=== PATIENT | female | born 1995 | race Two or more races ===

== ENCOUNTER 2019-07-12 09:20 | Emergency (ER) | payer OTHER ==
[~2019-07-12] VITALS: Ht 165.1 cm; Wt 66.0 kg
--- NOTE | 2019-07-12 09:56 | PHYS DOC ---
Past History Past Medical History: Anxiety Past Surgical History: No Surgical History Smoking: Non-smoker Alcohol Use: None Drug Use: None Adult General Chief Complaint Chief Complaint: [facility] HPI Patient is a 23 year old female4 who presents for evaluation of altered mental status. Patient is active when she was sent in by her superior officer for evaluation. Patient had been showing signs of confusion and slurred speech while on duty. Patient admits to taking a Xanax pill that was not prescribed to her from a friend about 6 AM today. She drove herself to work. Patient states that she has been under a lot of stress lately and feeling "jittery". Patient has not had a visit with her primary care provider regarding anxiety since it "takes 2-3 weeks to get in". Patient has not been formally diagnosed with anxiety. Patient denies taking any other pills. There is no reported suicidal thoughts, homicidal thoughts etc. Review of Systems Review of Systems Constitutional: Denies fever or chills [] Eyes: Denies change in visual acuity, redness, or eye pain [] HENT: Denies nasal congestion or sore throat [] Respiratory: Denies cough or shortness of breath [] Cardiovascular: No additional information not addressed in HPI [] GI: Denies abdominal pain, nausea, vomiting, bloody stools or diarrhea [] : Denies dysuria or hematuria [] Musculoskeletal: Denies back pain or joint pain [] Integument: Denies rash or skin lesions [] Neurologic: Denies headache, focal weakness or sensory changes [] Endocrine: Denies polyuria or polydipsia [] All other systems were reviewed and found to be within normal limits, except as documented in this note. Allergies Allergies Allergies Coded Allergies Type Severity Reaction Last Updated Verified No Known Drug Allergies 07/12/19 No Physical Exam Physical Exam Constitutional: Well developed, well nourished, in mild acute distress, non- toxic appearance. [] HENT: Normocephalic, atraumatic, bilateral external ears normal, oropharynx moist, no oral exudates, nose normal. [] Eyes: PERRL, EOMI, conjunctiva normal, no discharge. [] Neck: Normal range of motion, no tenderness, supple, no stridor. [] Cardiovascular:Heart rate regular rhythm, no murmur [] Lungs & Thorax: Bilateral breath sounds clear to auscultation [] Abdomen: Bowel sounds normal, soft, no tenderness, no masses, no pulsatile masses. [] Skin: Warm, dry, no erythema, no rash. [] Back: No tenderness, no CVA tenderness. [] Extremities: No tenderness, no cyanosis, no clubbing, ROM intact, no edema. [] Neurologic: Alert and oriented X 3, normal motor function, normal sensory function, no focal deficits noted. [] Psychologic: anxious affect (mild), mood normal. [] Current Patient Data Vital Signs Vital Signs Date Time Temp Pulse Resp B/P (MAP) Pulse Ox O2 Delivery O2 Flow Rate FiO2 07/12/19 09:27 97.8 108 18 141/91 (108) 98 Room Air EKG EKG [] Radiology/Procedures Radiology/Procedures [] Course & Med Decision Making Course & Med Decision Making Pertinent Labs and Imaging studies reviewed. (See chart for details) 1030 Pt stable, feeling better at this time. Drug screen positive for benozodiazepines. Close follow up with PCP recommended so pt can receive proper treatment for her underlying anxiety. No indication for psychiatric admission. Pt is not suicidal or homicidal. I feel her previously noted mental status change was from taking the xanax, no other obvious medical diagnosis seen. Blood sugar is normal. Pt is not and her UA is negative. Dragon Disclaimer Dragon Disclaimer This electronic medical record was generated, in whole or in part, using a voice recognition dictation system. Departure Departure: Impression: Primary Impression: Benzodiazepine misuse Additional Impression: Anxiety Disposition: 01 HOME, SELF-CARE Condition: STABLE Referrals: TREV WESLEY (PCP) Patient Instructions: Anxiety and Panic Attacks Additional Instructions: only take medications prescribed to you, call and see your primary care doctor right away in follow up, return if worsen or you have suicidal thoughts etc. Problem Qualifiers JOESPH PETERSON DO Jul 12, 2019 09:56
[2019-07-12 10:16] LABS: BARBITURATES NEG (NEG); BENZODIAZEPINES POS (NEG); CANNABINOIDS NEG (NEG); COCAINE NEG (NEG); METHADONE NEG (NEG); OPIATES NEG (NEG); PHENCYCLIDINE NEG (NEG)
[2019-07-12 10:17] LABS: AMPHETAMINE/METHAMPHETAMINE NEG (NEG)
[2019-07-12 10:25] LABS: BACTERIA,URINE 0 /HPF (0-FEW); BILIRUBIN,URINE NEG (NEG); CLARITY,URINE CLEAR; COLOR,URINE STRAW; GLUCOSE,URINE NEG (NEG); NITRITE,URINE NEG (NEG); RBC,URINE OCC /HPF (0-2); SQUAMOUS EPITHELIAL CELL,UR FEW /LPF; UROBILINOGEN,URINE 0.2 mg/dL (0.2 mg/dL); WBC,URINE OCC /HPF (0-4)
[2019-07-12 10:41] VITALS: BP 141/87
== END 2019-07-12 10:43 | disposition home or self-care (01) ==
LOC: ER 09:20
DX: F15.90 Other stimulant use, unspecified, uncomplicated (principal); F41.9 Anxiety disorder, unspecified
CPT/HCPCS: 36415; 80307; 81001; 81025; 82947; 99283

== ENCOUNTER 2020-08-26 15:46 | Emergency (ER) | payer OTHER ==
[~2020-08-26] VITALS: Ht 162.6 cm; Wt 67.0 kg
[2020-08-26] MEDS ORDERED: PRED20TA PO (16:46)
[2020-08-26] MEDS ORDERED: ALBU2.5V8 IH (16:46)
[2020-08-26 16:52] VITALS: BP 119/74
== END 2020-08-26 16:54 | disposition home or self-care (01) ==
LOC: ER 15:46
DX: J45.21 Mild intermittent asthma with (acute) exacerbation (principal)
CPT/HCPCS: 71045; 81025; 94640; 99283; J8540; 99284

== ENCOUNTER 2021-01-04 16:08 | Emergency (ER) | payer OTHER ==
[~2021-01-04] VITALS: Ht 162.6 cm; Wt 68.0 kg
[~2021-01-04 16:08] MED LIST: ALBU2.5V8 IH; PRED20TA PO
--- NOTE | 2021-01-04 16:48 | PHYS DOC ---
Past History Past Medical History: Asthma, Depression Past Surgical History: No Surgical History Smoking: Non-smoker Alcohol Use: None Drug Use: None General Adult EDM: Chief Complaint: VAGINAL PROBLEM HPI: HPI: 25-year-old female presents with vaginal pain. Patient had nonspecific the first of last month. She then had spotting for a couple of weeks. She has not had spotting for the last week and a half. She had intercourse with her boyfriend 2 days ago and it was very painful. The patient continues to have lower abdominal/vaginal cramping. She also feels like her vaginal discharge is changed. It is more white and thicker than usual. She denies fever or chills. She is not having any vaginal bleeding. Review of Systems: Review of Systems: Constitutional: Denies fever or chills Eyes: Denies change in visual acuity HENT: Denies nasal congestion or sore throat Respiratory: Denies cough or shortness of breath Cardiovascular: Denies chest pain or edema GI: Denies abdominal pain, nausea, vomiting, bloody stools or diarrhea : Vaginal discharge, vaginal pain Musculoskeletal: Denies back pain or joint pain Integument: Denies rash Neurologic: Denies headache, focal weakness or sensory changes Endocrine: Denies polyuria or polydipsia Lymphatic: Denies swollen glands Psychiatric: Denies depression or anxiety Allergies: Allergies: Allergies Coded Allergies Type Severity Reaction Last Updated Verified No Known Drug Allergies 08/26/20 No Physical Exam: PE: Constitutional: Well developed, well nourished, no acute distress, non-toxic appearance. [] HENT: Normocephalic, atraumatic, bilateral external ears normal, oropharynx moist, no oral exudates, nose normal. [] Eyes: PERRLA, EOMI, conjunctiva normal, no discharge. [] Neck: Normal range of motion, no tenderness, supple, no stridor. [] Cardiovascular: Heart rate regular rhythm, no murmur [] Lungs & Thorax: Bilateral breath sounds clear to auscultation [] Abdomen: Bowel sounds normal, soft, no tenderness, no masses, no pulsatile masses. [] Skin: Warm, dry, no erythema, no rash. [] Back: No tenderness, no CVA tenderness. [] Extremities: No tenderness, no cyanosis, no clubbing, ROM intact, no edema. [] Neurologic: Alert and oriented X 3, normal motor function, normal sensory function, no focal deficits noted. [] Psychologic: Affect normal, judgement normal, mood normal. : Normal external genitalia, discomfort with speculum exam, no obvious vaginal wall trauma, cervix with bright red irritation around the os and scattered bright red dots up to half a centimeter out from the os, mild pain with palpation of cervix. [] Current Patient Data: Labs: Laboratory Tests Test 01/04/21 16:42 POC Urine HCG, Qualitative hcg negative (Negative) EKG: EKG: [] Radiology/Procedures: Radiology/Procedures: [] Heart Score: C/O Chest Pain: N/A Risk Factors: Risk Factors: DM, Current or recent (<one month) smoker, HTN, HLP, family history of CAD, obesity. Risk Scores: Score 0 - 3: 2.5% MACE over next 6 weeks - Discharge Home Score 4 - 6: 20.3% MACE over next 6 weeks - Admit for Clinical Observation Score 7 - 10: 72.7% MACE over next 6 weeks - Early Invasive Strategies Course & Med Decision Making: Course & Med Decision Making Pertinent Labs and Imaging studies reviewed. (See chart for details) The patient is not . The patient's wet prep is significant for bacteria l vaginosis. I will treat her with Flagyl for 7 days. Her GC chlamydia is pending. She would like to be prophylactically treated for GC chlamydia. We gave her 500mg Rocephin IM and doxycycline for 7 days. She is stable for discharge at this time. [] Roqueon Disclaimer: Dragjim Disclaimer: This electronic medical record was generated, in whole or in part, using a voice recognition dictation system. Departure Departure: Impression: Primary Impression: Bacterial vaginosis Additional Impression: Concern about STD in female without diagnosis Disposition: HOME / SELF CARE / HOMELESS Condition: STABLE Referrals: HOLLY SYED MD (PCP) Patient Instructions: Bacterial Vaginosis, [id number], Sexually Transmitted Disease, [id number] Scripts Metronidazole (FLAGYL) 500 Mg Tablet 1 TAB PO BID for antibiotic, #14 TAB Prov: CAT GUNTER DO 01/04/21 Doxycycline Hyclate (DOXYCYCLINE HYCLATE) 100 Mg Capsule 1 CAP PO BID for antibiotic, #14 CAP Prov: CAT GUNTER DO 01/04/21 CAT GUNTER DO Jan 04, 2021 16:48
[2021-01-04 17:16] LABS: BILIRUBIN,URINE NEG (NEG); CLARITY,URINE HAZY; COLOR,URINE YELLOW; GLUCOSE,URINE NEG (NEG)
[2021-01-04 17:17] LABS: BACTERIA,URINE FEW /HPF (0-FEW); NITRITE,URINE NEG (NEG); RBC,URINE OCC /HPF (0-2); SQUAMOUS EPITHELIAL CELL,UR MOD /LPF; UROBILINOGEN,URINE 0.2 mg/dL (0.2 mg/dL); WBC,URINE OCC /HPF (0-4)
[2021-01-04] MEDS ORDERED: METR500T PO (17:53)
[2021-01-04] MEDS ORDERED: DOXY100C3 PO (17:53)
[2021-01-04] MEDS ORDERED: cefTRIAXone IM 500 MG VIAL. IM ONE (18:00)
[2021-01-04 18:52] VITALS: BP 114/74
[2021-01-07 17:07] LABS: CHLAMYDIA PROBE Negative (Negative)
== END 2021-01-04 18:52 | disposition home or self-care (01) ==
LOC: ER 16:08
DX: N76.0 Acute vaginitis (principal); B96.89 Other specified bacterial agents as the cause of diseases classified elsewhere; Z20.2 Contact with and (suspected) exposure to infections with a predominantly sexual mode of transmission
CPT/HCPCS: 81001; 81025; 87086; 87491; 87591; 96372; 99283; J0696; Q0111

== ENCOUNTER 2021-01-29 20:42 | Emergency (ER) | payer OTHER ==
[~2021-01-29] VITALS: Ht 162.6 cm; Wt 68.0 kg
[~2021-01-29 20:42] MED LIST changes: +DOXY100C3 PO; +METR500T PO
--- NOTE | 2021-01-29 21:08 | PHYS DOC ---
Past History Past Medical History: Asthma, Depression Past Surgical History: No Surgical History Smoking: Non-smoker Alcohol Use: None Drug Use: None General Adult EDM: Chief Complaint: POST-OP PROBLEM HPI: HPI: Patient is a [age] year old [sex] who presents with [] Review of Systems: Review of Systems: Constitutional: Denies fever or chills Eyes: Denies change in visual acuity HENT: Denies nasal congestion or sore throat Respiratory: Denies cough or shortness of breath Cardiovascular: Denies chest pain or edema GI: Denies abdominal pain, nausea, vomiting, bloody stools or diarrhea : Denies dysuria Musculoskeletal: Denies back pain or joint pain Integument: Denies rash Neurologic: Denies headache, focal weakness or sensory changes Endocrine: Denies polyuria or polydipsia Lymphatic: Denies swollen glands Psychiatric: Denies depression or anxiety Allergies: Allergies: Allergies Coded Allergies Type Severity Reaction Last Updated Verified No Known Drug Allergies 01/04/21 No Physical Exam: PE: Constitutional: Well developed, well nourished, no acute distress, non-toxic appearance. [] HENT: Normocephalic, atraumatic, bilateral external ears normal, oropharynx moist, no oral exudates, nose normal. [] Eyes: PERRLA, EOMI, conjunctiva normal, no discharge. [] Neck: Normal range of motion, no tenderness, supple, no stridor. [] Cardiovascular:Heart rate regular rhythm, no murmur [] Lungs & Thorax: Bilateral breath sounds clear to auscultation [] Abdomen: Bowel sounds normal, soft, no tenderness, no masses, no pulsatile masses. [] Skin: Warm, dry, no erythema, no rash. [] Back: No tenderness, no CVA tenderness. [] Extremities: No tenderness, no cyanosis, no clubbing, ROM intact, no edema. [] Neurologic: Alert and oriented X 3, normal motor function, normal sensory function, no focal deficits noted. [] Psychologic: Affect normal, judgement normal, mood normal. [] EKG: EKG: @2053 Sinus tachycardia at 104bpm, NO ST elevation, QRS 68ms, QT/QTc 318/424ms, t wave inversion III Radiology/Procedures: Radiology/Procedures: PROCEDURE: CHEST PA & LATERAL XR CHEST 2V History: Reason: chest pain s/p titanium bar in chest, surgery was 1 week ago / Spl. Instructions: / History: Comparison: August 26, 2020 Findings: Postoperative changes pectus excavatum deformity repair. Small bilateral pleural effusions with adjacent opacities. No pneumothorax. Impression: 1. Small bilateral pleural effusions with adjacent opacities, may represent atelectasis or consolidations. Electronically signed by: Ryan Aguilar DO (01/29/2021 9:22 PM) [facility] Heart Score: C/O Chest Pain: Yes HEART Score for Chest Pain: HEART Score for Chest Pain Response (Comments) Value History Slighlty/Non-Suspicious 0 ECG Normal 0 Age < 45 0 Risk Factors No Risk Factors 0 Troponin < Normal Limit 0 Total 0 Risk Factors: Risk Factors: DM, Current or recent (<one month) smoker, HTN, HLP, family history of CAD, obesity. Risk Scores: Score 0 - 3: 2.5% MACE over next 6 weeks - Discharge Home Score 4 - 6: 20.3% MACE over next 6 weeks - Admit for Clinical Observation Score 7 - 10: 72.7% MACE over next 6 weeks - Early Invasive Strategies Course & Med Decision Making: Course & Med Decision Making Pertinent Labs and Imaging studies reviewed. (See chart for details) [] Dragon Disclaimer: Dragon Disclaimer: This electronic medical record was generated, in whole or in part, using a voice recognition dictation system. Departure Departure: Impression: Primary Impression: Postoperative pain Disposition: HOME / SELF CARE / HOMELESS Condition: STABLE Referrals: PCP,NO (PCP) Patient Instructions: Chest Pain (Nonspecific), [id number], Pain Relief Preoperatively and Postoperatively Additional Instructions: May also take over the counter Ibuprofen as needed for pain. Scripts Hydrocodone Bit/Acetaminophen (HYDROCODONE-APAP 5-325 ) 1 Each Tablet 0.5-1 TAB PO PRN Q6HRS PRN for PAIN, #10 TAB 0 Refills Prov: CHELLE ROWE DO 01/29/21 CHELLE ROWE DO Jan 29, 2021 21:08
--- NOTE | 2021-01-29 21:25 | RAD ---
XR CHEST 2V History: Reason: chest pain s/p titanium bar in chest, surgery was 1 week ago / Spl. Instructions: / History: Comparison: August 26, 2020 Findings: Postoperative changes pectus excavatum deformity repair. Small bilateral pleural effusions with adjac ent opacities. No pneumothorax. Impression: 1. Small bilateral pleural effusions with adjacent opacities, may represent atelectasis or consolida tions. Electronically signed by: Ryan Aguilar DO (01/29/2021 9:22 PM) [facility]
[2021-01-29] MEDS: IV NORMAL SALINE 1,000ML 1,000 ML IV ONE (21:42)
[2021-01-29 22:04] LABS: BASO # 0.1 x10^3/uL (0.0-0.2); BASO % 1 % (0-3); EOS # 0.4 x10^3/uL (0.0-0.7); EOS % 4 % (0-3); HEMATOCRIT 41.7 % (36.0-47.0); HEMOGLOBIN 14.2 g/dL (12.0-15.5); LYMPH # 1.9 x10^3/uL (1.0-4.8); LYMPH % 20 % (24-48); MEAN CORPUSCULAR HEMOGLOBIN 29 pg (25-35); MEAN CORPUSCULAR HGB CONC 34 g/dL (31-37); MEAN CORPUSCULAR VOLUME 86 fL (79-100); MONO # 1.1 x10^3/uL (0.0-1.1); MONO % 11 % (0-9); NEUT # 6.1 x10^3uL (1.8-7.7); NEUT % 64 % (31-73); PLATELET COUNT 323 x10^3/uL (140-400); RED BLOOD COUNT 4.87 x10^6/uL (3.50-5.40); RED CELL DISTRIBUTION WIDTH 12.3 % (11.5-14.5); WHITE BLOOD COUNT 9.5 x10^3/uL (4.0-11.0)
[2021-01-29 22:09] LABS: CALCIUM 9.1 mg/dL (8.5-10.1); CREATININE 0.6 mg/dL (0.6-1.0); GFR 123.9; POTASSIUM 4.1 mmol/L (3.5-5.1)
[2021-01-29 22:13] LABS: ALBUMIN 3.6 g/dL (3.4-5.0); ALBUMIN/GLOBULIN RATIO 0.8 (1.0-1.7); MAGNESIUM 2.2 mg/dL (1.8-2.4); TOTAL BILIRUBIN 0.3 mg/dL (0.2-1.0); TOTAL PROTEIN 8.1 g/dL (6.4-8.2)
--- NOTE | 2021-01-29 22:24 | EKG ---
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
[2021-01-29] MEDS ORDERED: CONTRAST GIVEN. MC PRN (23:00)
[2021-01-29] MEDS: IOHEXOL 350 MG/ML 100 ML VIAL. IV ONE (23:14)
[2021-01-29 23:44] LABS: PREG TEST PT QUAL NEGATIVE (NEG)
--- NOTE | 2021-01-29 23:47 | RAD ---
Exam: CT of chest with contrast INDICATION: Chest pain TECHNIQUE: Sequential axial images through the chest obtained following the administration 100 mL of Omni 350 IV contrast. Sagittal and coronal reformatted images were reconstructed from the axial data and reviewed. Exposure: One or more of the following in the visualized dose reduction techniques were utilized for this examination: 1. Automated exposure control 2. Adjustment of the MA and/or KV according to patient size 3. Use of iterative of reconstructive technique Comparisons: Chest x-ray same day FINDINGS: Visualized portions of the thyroid are unremarkable. No enlarged mediastinal lymph nodes are identifi ed. Heart size is normal. No pericardial effusion. Thoracic aorta has a normal course and caliber. Pulmon mara artery is not enlarged. No pulmonary embolus identified within the main, lobar or segmental pulmo nary arteries. Airways are patent. No consolidation or pneumothorax. No suspicious lung nodules. Small bilateral pleural effusions. Visualized upper abdomen is unremarkable. Postoperative changes at the anterior chest wall with metallic shayne horizontally placed posterior to t he sternum and anterior to the lateral ribs. No suspicious osseous lesions or acute fractures. IMPRESSION: 1. Postoperative changes at the anterior chest wall described above. 2. No pulmonary embolus identified within the main, lobar or segmental pulmonary arteries. Electronically signed by: Harvey Romano MD (01/29/2021 11:45 PM) [facility]
[2021-01-29] MEDS ORDERED: HYDR-2155 PO (23:58)
[2021-01-30 00:03] VITALS: BP 109/76
[2021-01-30] MEDS: HYDROcodone/APAP 5/325MG 1 TAB TABLET PO ONE (00:06)
== END 2021-01-30 00:07 | disposition home or self-care (01) ==
LOC: ER 20:42
DX: G89.18 Other acute postprocedural pain (principal); J45.909 Unspecified asthma, uncomplicated; F32.9 Major depressive disorder, single episode, unspecified; Z98.890 Other specified postprocedural states
CPT/HCPCS: 36415; 71046; 71275; 80053; 83735; 84703; 85025; 85379; 93005; 96360; 99285; J7030; Q9967

== ENCOUNTER 2021-06-24 19:37 | Inpatient (IN) | payer SELFPAY ==
[~2021-06-24] VITALS: Ht 162.6 cm; Wt 59.9 kg
[~2021-06-24 19:37] MED LIST changes: +HYDR-2155 PO
--- NOTE | 2021-06-24 20:23 | PHYS DOC ---
Past History Past Medical History: Asthma, Depression Additional Past Medical Histor: Pectus excavatum Past Surgical History: Other Additional Past Surgical Histo: Titanium bar to chest for pectus excavatum Smoking: Quit Greater Than 1 Year Alcohol Use: Occasionally Drug Use: Other Social History Narrative: slade Adult General Chief Complaint Chief Complaint: RAPID HEART RATE HPI HPI Patient is a 25-year-old female who presents with a chief complaint of rapid heart rate after taking some methamphetamines/ecstasy Wednesday morning. States she is not sure how much she took, it was a pill that her friend gave her. States she is taken it before and had similar symptoms but daughter she did not take that much this time. States that she is felt anxious since she is taking it and has not eaten or had much to drink. Denies any recent travels, traumas, illnesses, fevers, chest pain, shortness of breath, abdominal pain, nausea, vomiting, diarrhea. Denies any dysuria, hematuria, blood in the stool. Denies any other alcohol or drug use Review of Systems Review of Systems Review of systems otherwise unremarkable except noted in HPI Allergies Allergies Allergies Coded Allergies Type Severity Reaction Last Updated Verified No Known Drug Allergies 01/04/21 No Physical Exam Physical Exam Constitutional: Well developed, well nourished, no acute distress, non-toxic appearance. [] HENT: Normocephalic, atraumatic, bilateral external ears normal, oropharynx moist, no oral exudates, nose normal. [] Eyes: conjunctiva normal, no discharge. [] Neck: Normal range of motion, no tenderness, supple, no stridor. [] Cardiovascular: Sinus tachycardia Lungs & Thorax: Bilateral breath sounds clear to auscultation [] Abdomen: soft, no tenderness, no masses, no pulsatile masses. [] Skin: Warm, dry, no erythema, no rash. [] Extremities: No tenderness, no cyanosis, no clubbing, ROM intact, no edema. [] Neurologic: Alert and oriented X 3, normal motor function, normal sensory function, no focal deficits noted. [] Psychologic: Affect normal, judgement normal, mood normal. [] Current Patient Data Vital Signs Vital Signs Date Time Temp Pulse Resp B/P (MAP) Pulse Ox O2 Delivery O2 Flow Rate FiO2 06/24/21 19:42 98.5 114 16 144/103 (117) 99 Room Air Lab Results Laboratory Tests Test 06/24/21 20:03 POC Urine HCG, Qualitative hcg negative (Negative) EKG EKG [] Radiology/Procedures Radiology/Procedures [] Heart Score C/O Chest Pain: No Risk Factors: Risk Factors: DM, Current or recent (<one month) smoker, HTN, HLP, family history of CAD, obesity. Risk Scores: Risk Factors: DM, Current or recent (<one month) smoker, HTN, HLP, family history of CAD, obesity. Course & Med Decision Making Course & Med Decision Making Patient is a 25-year-old female who presents with increased heart rate after taking some ecstasy yesterday morning Vital signs notable for mild sinus tachycardia. Physical exam noted above. Given IV fluid resuscitation as she appears a little dry. Given benzodiazepine. EKG with a rate of 91, QRS of 76, QTc of 457, no STEMI. Troponin slightly elevated most likely secondary to demand ischemia and not type I MD. Given aspirin. Discussed findings with patient and recommended admission to follow troponins, and EKGs with some fluid resuscitation. Patient grateful, verbalized understanding and agreed with plan of admission. Dragon Disclaimer Dragon Disclaimer This electronic medical record was generated, in whole or in part, using a voice recognition dictation system. Departure Departure: Impression: Primary Impression: Ecstasy abuse Disposition: 01 HOME / SELF CARE / HOMELESS Condition: GOOD Referrals: PCPANTHONY (PCP) MAKI CORTES Patient Instructions: Ecstasy Abuse Additional Instructions: Thank you for coming into the emergency department tonight and allowing us to take care of you. Please read the attached information carefully to go over things that we discussed. Please do not take any substances not prescribed physician as they can cause serious health risks including chest pain, shortness of breath, and heart attack, disability and in the worst case scenario as well as some of the other things we discussed. Please follow-up in the morning with a primary care physician to establish care and start seeing a PCP regularly. Please come back with new or concerning symptoms as discussed. JOESPH GARCES MD Jun 24, 2021 20:23
[2021-06-24] MEDS ORDERED: MIDAZOLAM HCL PF 5 MG/5 ML VIAL. IV ONE (20:30)
[2021-06-24] MEDS ORDERED: IV RINGERS SOLUTION,LACTATED 1,000 ML IV ONE ×2 (20:30→21:45)
[2021-06-24 20:39] LABS: CALCIUM 9.4 mg/dL (8.5-10.1); CREATININE 0.8 mg/dL (0.6-1.0); GFR 88.9; POTASSIUM 3.6 mmol/L (3.5-5.1)
[2021-06-24 20:41] LABS: BASO # 0.1 x10^3/uL (0.0-0.2); BASO % 1 % (0-3); EOS # 0.1 x10^3/uL (0.0-0.7); EOS % 1 % (0-3); HEMATOCRIT 43.3 % (36.0-47.0); HEMOGLOBIN 14.7 g/dL (12.0-15.5); LYMPH # 2.9 x10^3/uL (1.0-4.8); LYMPH % 25 % (24-48); MEAN CORPUSCULAR HEMOGLOBIN 29 pg (25-35); MEAN CORPUSCULAR HGB CONC 34 g/dL (31-37); MEAN CORPUSCULAR VOLUME 86 fL (79-100); MONO % 8 % (0-9); NEUT # 7.7 x10^3uL (1.8-7.7); NEUT % 66 % (31-73); PLATELET COUNT 237 x10^3/uL (140-400); RED BLOOD COUNT 5.02 x10^6/uL (3.50-5.40); RED CELL DISTRIBUTION WIDTH 13.1 % (11.5-14.5); WHITE BLOOD COUNT 11.7 x10^3/uL (4.0-11.0)
[2021-06-24 20:51] LABS: BARBITURATES NEG (NEG); BENZODIAZEPINES NEG (NEG); CANNABINOIDS POS (NEG); COCAINE NEG (NEG); METHADONE NEG (NEG); OPIATES NEG (NEG); PHENCYCLIDINE NEG (NEG)
[2021-06-24 20:53] LABS: AMPHETAMINE/METHAMPHETAMINE POS (NEG); BACTERIA,URINE FEW /HPF (0-FEW); CLARITY,URINE CLOUDY; COLOR,URINE AMBER; GLUCOSE,URINE NEG (NEG); NITRITE,URINE NEG (NEG); RBC,URINE RARE /HPF (0-2); SQUAMOUS EPITHELIAL CELL,UR FEW /LPF; UROBILINOGEN,URINE 0.2 mg/dL (0.2 mg/dL)
[2021-06-24 22:20] VITALS: BP 118/83
--- NOTE | 2021-06-24 23:46 | EKG ---
[address] [address] Test Date: 2021-06-24 Test Time: 21:05:14 Pat Name: FRANKI GREER Department: Room: Gender: F Cut To Length Operator: : 1995 Requested By: JOESPH GARCES Order Number: [id number] Reading MD: Measurements Intervals Trenary Rate: 91 P: 42 WV: 144 QRS: -1 QRSD: 76 T: 10 QT: 370 QTc: 457 Interpretive Statements SINUS RHYTHM LEFT ATRIAL ABNORMALITY LEFTWARD AXIS QRS(T) CONTOUR ABNORMALITY CONSIDER ANTEROSEPTAL MYOCARDIAL DAMAGE ABNORMAL ECG RI6.01 No previous ECG available for comparison
--- NOTE | 2021-06-25 00:38 | NUR ---
PT ADMITTED TO RM 120 VIA EMS ACCOMPANIED BY ER STAFF. PT AMBULATED INDEPENDENTLY FROM GURNEY TO BED. POC DISCUSSED W/ VERBALIZED UNDERSTANDING. VS OBTAINED. PT DENIES ANY CHEST PAIN AT THIS TIME. CALL LIGHT IN REACH, WILL CONTINUE TO MONITOR.
[2021-06-25 05:00] VITALS: BP 88/61
[2021-06-25 11:30] VITALS: BP 148/76
--- NOTE | 2021-06-25 16:45 | SSS ---
DATE OF SERVICE: 06/25/2021 ADMIT DATE: 06/24/2021 HISTORY OF PRESENT ILLNESS: The patient is a 25-year-old female patient who apparently presented to the Emergency Room with a complaint of rapid heart rate after taking some methamphetamine ecstasy, Wednesday morning. The patient stated that she is not sure how much she took. It was a pill that her friend gave her. Stated she has taken it before and had similar symptoms, but she does not take that much this time. Stated that she has felt anxious since she is taking it and has not eaten or had much to drink. She denies any recent travel, trauma, illness, fever, chest pain, shortness of breath, abdominal pain, nausea, vomiting or diarrhea. Denied any dysuria, frequency or hematuria. She was extensively investigated in the Emergency Room, has had an EKG, which showed that she was in sinus rhythm with a heart rate of 91, QRS duration of 76. Corrected QT interval of 457, no STEMI. Her first set of troponin was elevated and she was admitted to do two more sets of cardiac enzyme, was given also IV fluid together with one dose of Versed. She has 3 sets of cardiac enzymes, showed the troponin was 111, down to 103 and down to 94. The patient has no further episode of chest pain or palpitation and I spoke with the senior qa tester who recommended doing an outpatient echocardiogram and that the patient can be safely discharged. PAST MEDICAL HISTORY: Significant for bronchial asthma and depression. PAST SURGICAL HISTORY: Significant for pectus excavatum repair. She does have a titanium bar to chest for pectus excavatum. FAMILY HISTORY: Noncontributory. SOCIAL HISTORY: She quit smoking greater than 1 year. She uses alcohol occasionally and she apparently abuse amphetamine and ecstasy as well as marijuana. PHYSICAL EXAMINATION: GENERAL: On arrival to the Emergency Room, the patient was apparently anxious. VITAL SIGNS: Her heart rate was 114, blood pressure was 144/103, temperature was 98.5, respiratory rate was 16 and oxygen saturation was 99%. The rest of clinical exam was mostly unremarkable. HEART: Showed sinus tachycardia. LUNGS: Clear to auscultation. No crepitation or rhonchi. ABDOMEN: Soft, nontender. NEUROLOGIC: She was alert, oriented x 3 with normal motor and sensory function, no obvious deficit. LABORATORY WORK: On admission showed a white cell count of 11,700, hemoglobin 14, hematocrit 43, MCV 86 and platelet count 237,000. Her serum sodium was 135, potassium 3.6, chloride 98, bicarbonate 27, anion gap of 10, BUN 12, creatinine 0.8. Estimated GFR was 88 mL per minute. Her glucose 104, calcium was 9.4. Urinalysis was essentially unremarkable and her toxic screen was positive for amphetamine, methamphetamine as well as cannabinoids. As she has 3 sets of cardiac enzymes that ruled out myocardial infarction and the patient remained hemodynamically stable, a decision was made to discharge her home. On the discharge date, she looked well and was clearly in no apparent respiratory distress. Her heart rate was 94, blood pressure was 148/76, temperature 98.1, respiratory rate was 16 and oxygen saturation was 99% on room air. The rest of clinical exam was stable. ASSESSMENT AND PLAN: The patient was discharged and offered an outpatient echocardiogram. 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 MERE/ANTONETTE DR: Florencia TID: [id number]
== END 2021-06-25 15:00 | disposition home or self-care (01) | DRG 310 ==
LOC: ER 19:37 → UNDOADMIN 21:41 → 1 SOUTH 21:41 → ER 22:05
PROVIDERS: ADMIT Hospitalist; ATTEND Hospitalist
DX: R00.0 Tachycardia, unspecified (principal); F15.10 Other stimulant abuse, uncomplicated; F12.10 Cannabis abuse, uncomplicated
CPT/HCPCS: 36415; 80048; 80307; 81001; 81025; 84484; 85025; 87077; 87086; 93005; 96360; J2250; J7120; 99285-25